=== PATIENT | male | born 1965 | race Two or more races ===

== ENCOUNTER 2021-09-25 15:34 | Inpatient (IN) | payer MEDICAID, OTHER ==
[2021-09-25] MEDS ORDERED: LORazepam 2MG/ML-1ML VIAL ONE (15:40)
[2021-09-25] MEDS ORDERED: DEXTROSE 10% 1,000 ML IV ONE (15:48)
[2021-09-25] MEDS ORDERED: PANTOPRAZOLE 40 MG/10 ML VIAL INJ IV ONE ×3 (15:50→18:45)
[2021-09-25] MEDS ORDERED: SODIUM CHLORIDE 0.9% 500 ML IVB ONE (16:00)
[2021-09-25] MEDS ORDERED: SODIUM CHLORIDE 0.9% 1,000 ML IV ONE (16:00)
[2021-09-25] MEDS ORDERED: OCTREOTIDE ACETATE 500 MCG in SODIUM CHL 0.9% 100 ML IV ONE (16:00)
[2021-09-25] MEDS ORDERED: MIDAZOLAM HCL 5 MG/ML-1ML VIAL ONE (16:18)
[2021-09-25] MEDS ORDERED: NOREPINEPHRINE 8 MG/250ML KIT 250 ML IV ONE (16:19)
[2021-09-25 16:46] LABS: Basophils # (auto) 0 10 ^3/uL (0-0.2); Basophils % (auto) 0.4 % (0.0-2.0); Eosinophils # (auto) 0 10 ^3/uL (0-0.8); Hemoglobin 9.4 g/dL (13.5-17.5)
[2021-09-25 16:48] LABS: Eosinophils % (auto) 0.1 % (0.0-7.0); Hematocrit 26.8 % (41.0-53.0); Lymphocytes # (auto) 0.7 10 ^3/uL (0.4-5.4); Lymphocytes % (auto) 11.3 % (10.0-50.0); Mean Corpuscular Hemoglobin 40.9 pg (28.0-32.0); Mean Corpuscular Hgb Conc. 34.9 g/dL (32.0-36.0); Mean Corpuscular Volume 117.3 fL (80.0-100.0); Monocytes # (auto) 0.7 10 ^3/uL (0-1.3); Monocytes % (auto) 10.6 % (0.0-12.0); Neutrophils # (auto) 4.9 10 ^3/uL (1.6-8.6); Neutrophils % (auto) 77.6 % (37.0-80.0); Nucleated Red Blood Cells % 2.3 %; Red Blood Cells 2.29 10^6/uL (4.5-5.90); Red Cell Distribution Width 18.7 % (11.8-14.3); White Blood Cell 6.4 10^3/uL (4.4-10.8)
[2021-09-25] MEDS ORDERED: MIDAZOLAM DRIP 50 mg/50mL 50 ML IV SCH (17:00)
[2021-09-25] MEDS ORDERED: NOREPINEPHRINE 8 MG/250ML KIT 250 ML IV SCH (17:00)
[2021-09-25] MEDS ORDERED: MIDAZOLAM HCL 5 MG/ML-1ML VIAL IV ONE (17:00)
[2021-09-25 17:06] LABS: Albumin 1.6 g/dL (3.4-5.0); Calcium 7.5 mg/dL (8.5-10.1); Magnesium 3.2 mg/dL (1.6-2.6)
[2021-09-25 17:09] LABS: INR 2.59 (0.9-1.15)
[2021-09-25 17:10] LABS: BUN/Creatinine Ratio 8.7; Bilirubin, Total 15.4 mg/dL (0.2-1.0); Total Protein 4.6 g/dL (6.4-8.2)
[2021-09-25 17:18] LABS: Partial Thromboplastin Time 78.3 sec (23.6-33.0)
[2021-09-25] MEDS ORDERED: fentaNYL Drip 2500mCg/250mlNS 250 ML IV ONE (17:22)
[2021-09-25] MEDS ORDERED: SODIUM BICARBONATE 8.4 % INJ 50ML VIAL IV ONE ×2 (17:38→18:45)
[2021-09-25] MEDS ORDERED: VASOPRESSIN 50 UNITS in D5W 5% 247.5 ML IV SCH (17:45)
[2021-09-25] MEDS ORDERED: ALBUMIN 25% 100 ML IV ONE (18:00)
[2021-09-25 18:20] VITALS: BP 74/17
[2021-09-25 18:21] VITALS: BP 74/17
[2021-09-25 18:35] VITALS: BP 73/16
[2021-09-25] MEDS ORDERED: fentaNYL Drip 2500mCg/250mlNS 250 ML IV SCH (18:45)
[2021-09-25] MEDS ORDERED: VANCOMYCIN PER PHARMACY 0 MG IV SCH (19:15)
[2021-09-25] MEDS ORDERED: PIPERACILLIN-TAZOB 3.375GM 100 ML IV ONE (19:15)
[2021-09-25 19:31] LABS: Hematocrit 24.9 % (41.0-53.0); Hemoglobin 8.1 g/dL (13.5-17.5); Mean Corpuscular Hemoglobin 40.9 pg (28.0-32.0); Mean Corpuscular Hgb Conc. 32.6 g/dL (32.0-36.0); Mean Corpuscular Volume 125.5 fL (80.0-100.0); Red Blood Cells 1.98 10^6/uL (4.5-5.90); White Blood Cell 6.3 10^3/uL (4.4-10.8)
[2021-09-25 19:32] LABS: Red Cell Distribution Width 20.1 % (11.8-14.3)
[2021-09-25 19:34] LABS: Basophils % (manual) 0 (0.0-2.0); Blast Cells 0; Metamyelocytes % 0; Myelocytes % 0; Promyelocytes % 0; Reactive Lymphocytes 0
[2021-09-25] MEDS ORDERED: MORPHINE SULFATE INJECTION 2 MG/ML SYRG IV PRN (19:45)
[2021-09-25] MEDS ORDERED: NITROGLYCERIN 0.4 MG SL TAB SL PRN (19:45)
[2021-09-25 19:50] VITALS: BP 53/24
[2021-09-25 19:56] LABS: Lactic Acid w/Reflex 22.2 mmol/L (0.4-2.0)
[2021-09-25 20:23] LABS: Band Neutrophils % (manual) 1; Eosinophils % (manual) 1 (0-7); Lymphocytes % (manual) 18 (10.0-50.0); Monocytes % (manual) 8 (0-12)
[2021-09-25] MEDS ORDERED: EPINEPHrine HCL 250 ML IV SCH (20:30)
[2021-09-25] MEDS ORDERED: VANCOMYCIN 1GM/250ML 250 ML IV ONE (20:30)
[2021-09-25] MEDS ORDERED: EPINEPHrine HCL 250 ML IV ONE (20:31)
[2021-09-25 22:00] VITALS: BP 139/91
[2021-09-26] MEDS ORDERED: LACTULOSE 20Gm/30ML SOLN PO SCH
== END 2021-09-26 12:15 | DRG 720 ==
LOC: ER 15:34 → EDBD 15:34 → TELE 19:37
PROVIDERS: ADMIT Nurse Practitioner; ATTEND Internal Medicine Pulmonary Disease
PROC: 5A1935Z Respiratory Ventilation, Less than 24 Consecutive Hours (ICD-10-PCS; principal; 2021-09-25)
PROC: 30233N1 Transfusion of Nonautologous Red Blood Cells into Peripheral Vein, Percutaneous Approach (ICD-10-PCS; 2021-09-25)
PROC: 0BH17EZ Insertion of Endotracheal Airway into Trachea, Via Natural or Artificial Opening (ICD-10-PCS; 2021-09-25)
PROC: 30233K1 Transfusion of Nonautologous Frozen Plasma into Peripheral Vein, Percutaneous Approach (ICD-10-PCS; 2021-09-25)
DX: A41.9 Sepsis, unspecified organism (principal); K72.00 Acute and subacute hepatic failure without coma; K76.7 Hepatorenal syndrome; J96.01 Acute respiratory failure with hypoxia; E43 Unspecified severe protein-calorie malnutrition; K85.20 Alcohol induced acute pancreatitis without necrosis or infection; R65.21 Severe sepsis with septic shock; R57.8 Other shock; E87.1 Hypo-osmolality and hyponatremia; D68.9 Coagulation defect, unspecified; K72.90 Hepatic failure, unspecified without coma; K74.60 Unspecified cirrhosis of liver; E87.5 Hyperkalemia; E88.09 Other disorders of plasma-protein metabolism, not elsewhere classified
CPT/HCPCS: 31500; 36415; 36430; 36600; 71045; 80053; 82140; 82805; 83605; 83690; 83735; 84443; 84484; 85007; 85025; 85027; 85610; 85730; 86850; 86900; 86901; 86920; 87040; 87070; 87205; 93005; 94002; 96361; 96374; 99291; C1751; C9113; G0378; J0171; J2250; J7060; P9047